=== PATIENT | male | born 1980 | race Two or more races ===

== ENCOUNTER 2022-03-28 10:10 | Emergency (ER) | payer SELFPAY ==
[~2022-03-28] VITALS: Ht 203.2 cm; Wt 172.8 kg
[2022-03-28] MEDS ORDERED: SODIUM CHLORIDE 0.9% 1,000 ML IV ONE (10:45)
[2022-03-28 11:52] LABS: Basophils # (auto) 0 10 ^3/uL (0-0.2); Basophils % (auto) 0.8 % (0.0-2.0); Eosinophils # (auto) 0.2 10 ^3/uL (0-0.8); Eosinophils % (auto) 3.3 % (0.0-7.0); Hematocrit 47.5 % (41.0-53.0); Hemoglobin 15.5 g/dL (13.5-17.5); Lymphocytes # (auto) 1.3 10 ^3/uL (0.4-5.4); Lymphocytes % (auto) 22.2 % (10.0-50.0); Mean Corpuscular Hemoglobin 28.7 pg (28.0-32.0); Mean Corpuscular Hgb Conc. 32.6 g/dL (32.0-36.0); Mean Corpuscular Volume 88.2 fL (80.0-100.0); Monocytes # (auto) 0.6 10 ^3/uL (0-1.3); Monocytes % (auto) 9.5 % (0.0-12.0); Neutrophils # (auto) 3.8 10 ^3/uL (1.6-8.6); Neutrophils % (auto) 64.2 % (37.0-80.0); Red Blood Cells 5.39 10^6/uL (4.5-5.90); Red Cell Distribution Width 13.1 % (11.8-14.3); White Blood Cell 5.9 10^3/uL (4.4-10.8)
[2022-03-28 12:04] LABS: Urine Bacteria FEW /hpf (None Seen); Urine Blood 2+ /uL (Negative); Urine Specific Gravity 1.016 (1.001-1.035); Urine WBC 152 /hpf (0 - 3)
[2022-03-28 12:10] LABS: Albumin 3.8 g/dL (3.4-5.0); Potassium 4.3 mmol/L (3.5-5.1)
[2022-03-28 12:12] LABS: BUN/Creatinine Ratio 16.3
[2022-03-28 12:41] LABS: Bilirubin, Total 0.4 mg/dL (0.2-1.0); Total Protein 7.5 g/dL (6.4-8.2)
[2022-03-28] MEDS ORDERED: CIPR-173 PO (13:07)
[2022-03-28] MEDS ORDERED: TRAM-297 PO (13:11)
[2022-03-28 14:40] VITALS: BP 132/90
== END 2022-03-28 14:55 | disposition home or self-care (01) ==
LOC: ER 10:10
DX: G44.209 Tension-type headache, unspecified, not intractable (principal); N39.0 Urinary tract infection, site not specified; I10 Essential (primary) hypertension; F12.10 Cannabis abuse, uncomplicated; F17.290 Nicotine dependence, other tobacco product, uncomplicated
CPT/HCPCS: 36415; 70450; 80053; 81001; 83605; 85025; 93005; 96360; 96361; 99285; J7030

== ENCOUNTER 2022-05-28 17:37 | Emergency (ER) | payer MEDICAID, OTHER ==
[~2022-05-28] VITALS: Ht 203.2 cm; Wt 172.0 kg
[~2022-05-28 17:37] MED LIST: CIPR-173 PO; TRAM-297 PO
[2022-05-28 18:53] VITALS: BP 144/84
[2022-05-28 21:00] LABS: Urine Bacteria NONE SEEN /hpf (None Seen); Urine Blood Negative /uL (Negative); Urine Specific Gravity 1.018 (1.001-1.035); Urine WBC 306 /hpf (0 - 3)
[2022-05-28] MEDS ORDERED: cefTRIAXone SOD 1,000 MG VL IM ONE (21:15)
[2022-05-28] MEDS ORDERED: ONDANSETRON ODT 4 MG TAB PO ONE (21:15)
[2022-05-28] MEDS ORDERED: ONDA-144 PO (21:27)
[2022-05-28] MEDS ORDERED: PHEN95TA10 PO (21:27)
[2022-05-28] MEDS ORDERED: CIPR500T4 PO (21:27)
== END 2022-05-28 21:56 | disposition home or self-care (01) ==
LOC: ER 17:38
DX: N39.0 Urinary tract infection, site not specified (principal); F12.10 Cannabis abuse, uncomplicated; I10 Essential (primary) hypertension
CPT/HCPCS: 81001; 96372; 99283; J0696; Q0162

== ENCOUNTER 2022-11-06 14:58 | Emergency (ER) | payer SELFPAY ==
[~2022-11-06] VITALS: Ht 200.7 cm; Wt 170.0 kg
[~2022-11-06 14:58] MED LIST changes: +CIPR500T4 PO; +ONDA-144 PO; +PHEN95TA10 PO
[2022-11-06 15:43] LABS: Urine Bacteria NONE SEEN /hpf (None Seen); Urine Blood 1+ /uL (Negative); Urine Specific Gravity 1.015 (1.001-1.035); Urine WBC 1205 /hpf (0 - 3); Urine WBC Clumps PRESENT /hpf (None Seen)
[2022-11-06 15:53] LABS: Basophils # (auto) 0 10 ^3/uL (0-0.2); Basophils % (auto) 0.4 % (0.0-2.0); Eosinophils # (auto) 0 10 ^3/uL (0-0.8); Eosinophils % (auto) 0.3 % (0.0-7.0); Hemoglobin 17.1 g/dL (13.5-17.5); Lymphocytes # (auto) 0.5 10 ^3/uL (0.4-5.4); Lymphocytes % (auto) 7.5 % (10.0-50.0); Mean Corpuscular Hemoglobin 29.9 pg (28.0-32.0); Mean Corpuscular Hgb Conc. 34.2 g/dL (32.0-36.0); Mean Corpuscular Volume 87.3 fL (80.0-100.0); Monocytes # (auto) 0.6 10 ^3/uL (0-1.3); Monocytes % (auto) 8.5 % (0.0-12.0); Neutrophils % (auto) 83.3 % (37.0-80.0); Nucleated Red Blood Cells % 0.1 %; Red Blood Cells 5.73 10^6/uL (4.5-5.90); Red Cell Distribution Width 13.5 % (11.8-14.3); White Blood Cell 7.2 10^3/uL (4.4-10.8)
[2022-11-06 16:13] LABS: Albumin 4.1 g/dL (3.4-5.0); Calcium 8.9 mg/dL (8.5-10.1)
[2022-11-06 16:17] LABS: BUN/Creatinine Ratio 13.6; Bilirubin, Total 0.7 mg/dL (0.2-1.0); Total Protein 8.2 g/dL (6.4-8.2)
[2022-11-06] MEDS ORDERED: CIPR-173 PO (16:20)
[2022-11-06] MEDS ORDERED: cefTRIAXone 1GM/50ML D5W 50 ML IV ONE (16:30)
[2022-11-06] MEDS ORDERED: cefTRIAXone SOD 1,000 MG VL IM ONE (17:15)
[2022-11-06 17:35] VITALS: BP 117/76
== END 2022-11-06 17:36 | disposition home or self-care (01) ==
LOC: ER 15:00
DX: N30.00 Acute cystitis without hematuria (principal); I10 Essential (primary) hypertension; F12.90 Cannabis use, unspecified, uncomplicated; Z79.899 Other long term (current) drug therapy; Z98.890 Other specified postprocedural states
CPT/HCPCS: 36415; 80053; 81001; 85025; 87086; 96372; 99283; J0696

== ENCOUNTER 2023-01-01 08:29 | Emergency (ER) | payer SELFPAY ==
[~2023-01-01] VITALS: Ht 203.2 cm; Wt 186.3 kg
[2023-01-01 09:11] LABS: Urine Bacteria NONE SEEN /hpf (None Seen); Urine Blood 1+ /uL (Negative); Urine Specific Gravity 1.016 (1.001-1.035); Urine WBC 1082 /hpf (0 - 3); Urine WBC Clumps PRESENT /hpf (None Seen)
[2023-01-01 09:16] VITALS: BP 151/73
[2023-01-01] MEDS ORDERED: cefTRIAXone SOD 1,000 MG VL IM ONE (09:45)
[2023-01-01] MEDS ORDERED: LIDOCAINE 1% HCL (LOCAL ANESTH.) INJ 20ML MDV IJ ONE (09:45)
[2023-01-01] MEDS ORDERED: PROM1SOL4 PO (10:28)
[2023-01-01] MEDS ORDERED: LEVO750T8 PO (10:28)
== END 2023-01-01 10:47 | disposition home or self-care (01) ==
LOC: ER 08:29
DX: J20.9 Acute bronchitis, unspecified (principal); N39.0 Urinary tract infection, site not specified; I10 Essential (primary) hypertension; F12.90 Cannabis use, unspecified, uncomplicated; Z79.899 Other long term (current) drug therapy
CPT/HCPCS: 71046; 81001; 96372; 99284; J0696; J2001